=== PATIENT | male | born 1935 | race Hispanic/Latino ===

== ENCOUNTER 2019-12-17 14:58 | Inpatient (IN) | payer OTHER, MEDICARE ==
[~2019-12-17] VITALS: Ht 175.3 cm; Wt 84.5 kg
[~2019-12-17 14:58] MED LIST: ASPI-1197 PO; ATOR40TA71 PO; CARV12.511 PO; CLOP75TA32 PO; FAMO20TA8 PO; FURO20TA4 PO; ISOS60TA4 PO; LEVO25TA54 PO; MULT-1258 PO; SACU1TAB PO; SPIR25TA6 PO; TYL3 PO
[2019-12-17 15:33] LABS: BASOPHILS % (AUTO) 0.5 % (0.0-5.0); EOSINOPHILS % (AUTO) 1.3 % (0.0-8.0); LYMPHOCYTES % (AUTO) 6.9 % (21.0-51.0); MEAN CORPUSCULAR HEMOGLOBIN 31.8 pg (27.0-33.0); MEAN CORPUSCULAR HGB CONC 34.4 g/dL (32.0-36.0); MEAN CORPUSCULAR VOLUME 92.4 fL (79-99); MONOCYTES % (AUTO) 7.6 % (3.0-13.0); NEUTROPHILS % (AUTO) 82.8 % (40.0-77.0); PLATELET COUNT (AUTO) 371 K/uL (130-400); RED BLOOD CELL COUNT(AUTO) 2.11 MIL/uL (4.50-6.20); RED CELL DISTRIBUTION WIDTH 13.4 % (11.0-15.5); WHITE BLOOD COUNT (AUTO) 15.7 K/uL (4.8-10.8)
[2019-12-17 15:39] LABS: HEMATOCRIT 19.5 % (42-54)
[2019-12-17 15:45] LABS: CREATININE 2.7 mg/dL (0.5-1.5); POTASSIUM 5.2 mmol/L (3.5-5.1)
[2019-12-17 15:47] LABS: PARTIAL THROMBOPLASTIN TIME 30.6 SEC (26.3-35.5)
[2019-12-17 15:50] LABS: ALBUMIN 2.5 g/dL (3.5-5.0); BILIRUBIN,TOTAL 0.2 mg/dL (0.2-1.0); TOTAL PROTEIN, SERUM 6.3 g/dL (6.0-8.3)
[2019-12-17] MEDS ORDERED: PANTOPRAZOLE 40 MG/VIAL ONE ×2 (15:58→22:12)
[2019-12-17] MEDS ORDERED: FAMOTIDINE/PF 20 MG/2 ML VIAL IV ONE (15:58)
[2019-12-17 16:05] LABS: INR 1.01 (0.85-1.15); PROTHROMBIN TIME 10.9 SEC (9.6-11.6)
[2019-12-17] MEDS ORDERED: SODIUM CHLORIDE 0.9% 1000ML 1,000 ML IV ONE (16:22)
[2019-12-17 17:22] LABS: APPEARANCE,URINE Clear (CLEAR); BILIRUBIN,URINE Negative (NEGATIVE); COLOR,URINE Yellow (YELLOW); GLUCOSE, URINE (UA) Negative (NEGATIVE); KETONES,URINE Negative (NEGATIVE); LEUKOCYTE ESTERASE ,URINE Negative (NEGATIVE); NITRATE,URINE Negative (NEGATIVE); OCCULT BLOOD,URINE Negative (NEGATIVE); PROTEIN,URINE Negative (NEGATIVE); UROBILINOGEN,URINE 0.2 mg/dL (0.2-1.0)
[2019-12-17] MEDS ORDERED: SODIUM CHLORIDE 0.9% 500ML 500 ML IV ONE (17:52)
[2019-12-17] MEDS ORDERED: ACETAMINOPHEN 325 MG TAB PO PRN ×2 (19:15)
[2019-12-17] MEDS ORDERED: LACTULOSE 20 GM/30 ML UDCUP PO PRN (19:15)
[2019-12-17] MEDS: SODIUM CHLORIDE 0.9% 1000ML 1,000 ML IV SCH (19:15)
[2019-12-17] MEDS ORDERED: ONDANSETRON HCL 4 MG/2 ML VIAL IV PRN (19:15)
[2019-12-17] MEDS ORDERED: HYDRALAZINE HCL 20 MG/ML VIAL IV PRN (19:15)
[2019-12-17 20:53] LABS: HEMATOCRIT 21.1 % (42-54)
[2019-12-17] MEDS: PANTOPRAZOLE SODIUM 40 MG TABLET.DR PO SCH (21:00)
[2019-12-17] MEDS ORDERED: DEXTROSE 50%-WATER 25 GM/50 ML VIAL IV SCH (22:15)
[2019-12-17] MEDS ORDERED: INSULIN HUMULIN R 100 UNIT/ML 3ML SQ SCH (22:15)
[2019-12-17] MEDS ORDERED: CALCIUM GLUCONATE 1 GM/10 ML VIAL IV SCH (22:15)
[2019-12-18] VITALS (19 sets, daily range): BP systolic 105–135; BP diastolic 54–67
[2019-12-18 01:27] LABS: HEMATOCRIT 25.8 % (42-54)
[2019-12-18] MEDS ORDERED: CALCIUM GLUCONATE 1 GM/10 ML VIAL IV ONE (01:37)
[2019-12-18] MEDS ORDERED: DEXTROSE 50%-WATER 50 ML DISP.SYRIN IV ONE (01:38)
[2019-12-18] MEDS ORDERED: INSULIN HUMULIN R 100 UNIT/ML 3ML ONE (01:38)
[2019-12-18] MEDS ORDERED: SODIUM CHLORIDE 0.9% 50 ML IV ONE (01:39)
--- NOTE | 2019-12-18 02:10 | NUR ---
ADMIT PT ADMITTED TO ROOM 413, AAOX3. PLACED COMFORTABLY IN BED. ADMISSION CARE DONE. ADMISSION DATA BASE COMPLETED. PLACED PT NPO FOR EGD IN AM. ORIENTED TO ROOM AND UNIT. IN FOR MORE CARE AND MANAGEMENT. Addendum: 12/18/19 at 0313 by CAMILLA AGUILAR RN RN Amended: Links added.
[2019-12-18] MEDS: SODIUM CHLORIDE 0.9% 1000ML 1,000 ML IV SCH ×5 (02:25→21:07)
--- NOTE | 2019-12-18 05:40 | NUR ---
ROUNDS PT RESTING WELL, NO COMPLAINTS VERBALIZED. KEPT NPO. PCP IN TO GIVE PT A BED BATH. FOR MORE CARE.
[2019-12-18 06:06] LABS: BASOPHILS % (AUTO) 0.5 % (0.0-5.0); HEMATOCRIT 27.4 % (42-54); LYMPHOCYTES % (AUTO) 9.3 % (21.0-51.0); MEAN CORPUSCULAR HEMOGLOBIN 30.3 pg (27.0-33.0); MEAN CORPUSCULAR HGB CONC 33.9 g/dL (32.0-36.0); MEAN CORPUSCULAR VOLUME 89.3 fL (79-99); MONOCYTES % (AUTO) 8.7 % (3.0-13.0); NEUTROPHILS % (AUTO) 78.7 % (40.0-77.0); PLATELET COUNT (AUTO) 313 K/uL (130-400); RED BLOOD CELL COUNT(AUTO) 3.07 MIL/uL (4.50-6.20); WHITE BLOOD COUNT (AUTO) 12.8 K/uL (4.8-10.8)
[2019-12-18 06:32] LABS: CREATININE 2.1 mg/dL (0.5-1.5)
--- NOTE | 2019-12-18 08:00 | NUR ---
TO GI LAB VIA BED ACCOMPANIED BY [facility] RIVET MAKER.
[2019-12-18] MEDS: PANTOPRAZOLE SODIUM 40 MG TABLET.DR PO SCH ×3 (08:37→20:27)
[2019-12-18] MEDS ORDERED: PROPOFOL 10 MG/ML 20ML VIAL IV ONE (08:59)
[2019-12-18] MEDS ORDERED: PHENYLEPHRINE HCL 10 MG/ML 1ML VIAL IV ONE (09:12)
[2019-12-18] MEDS ORDERED: SODIUM CHLORIDE 0.9% 10 ML VIAL ONE (09:12)
--- NOTE | 2019-12-18 10:30 | NUR ---
PT. RETURNED TO ROOM VIA BED ACCOMPANIED BY Ariana HAYWARD RN. EYES CLOSED, RESP.'S EVEN AND UNLABORED. OPENS EYES TO VERBAL COMMAND. ALERT AND ORIENTED X3. DENIES ANY CURRENT SOB, DENIES ANY CURRENT PAIN. CALL LIGHT WITHIN REACH, VERBALIZED ABILITY TO USE. BED LOW, SIDE RAILS UP X3. ROOM DOOR OPEN.
--- NOTE | 2019-12-18 11:35 | NUR ---
DYSPHAGIA CHARU COMPLETED. -S/S OF ASPIRATION AT THIS TIME WITH ALL TEXTURES. Pt CURRENTLY ON LIQUID DIET SECONDARY TO GI ISSUES. Pt SAFE TO ADVANCE TO REGULAR SOLIDS WHEN DOCTOR RECOMMENDS IT. LIFE SKILLS COACH COORDINATED WITH NURSE LAWLER. PATIENT EDUCATED ON RISKS AND CONSEQUENCES OF ASPIRATION AND VOICED UNDERSTANDING. Addendum: 12/18/[address] RODRIGUEZ Amended: Links added.
--- NOTE | 2019-12-18 16:52 | NUR ---
INITIAL: Met w pt this afternoon to discuss dcp. Pt mentions that prior to admission he was in the process of moving from his sons home in [place] to his own apartment @ [facility] in [place]. Pt states that he still needs to move his furniture and belongs. PT states that he is independent w ambulation and ADLs. He had provider services 4hr/day but is not sure if the provider will continue to visit him once he moves. Pt states that he has a rollator avail if needed. Pt feels safe and comfortable to return home at ne. He mentions that if needed he might return to his son's home. CM to continue to follow and wait for MD recommendations. Addendum: 12/19/19 at 1656 by JESUS ALBERTO BONILLA Amended: Links added.
--- NOTE | 2019-12-18 20:30 | NUR ---
MEDS AWAKENED PT FOR DUE MEDS. SHIFT ASSESSMENT DONE, PLEASE REFER TO CHART. DUE MEDS ADMINISTERED, TOLERATED WELL. CALL LIGHT WITHIN REACH. WILL MONITOR PT. Addendum: 12/18/19 at 2232 by CAMILLA AGUILAR RN RN Amended: Links added.
[2019-12-19] MEDS: SODIUM CHLORIDE 0.9% 1000ML 1,000 ML IV SCH ×5 (00:16→21:15)
--- NOTE | 2019-12-19 01:42 | NUR ---
ROUNDS PT RESTING WELL, NO DISTRESS NOTED. KEPT COMFORTABLE IN BED WITH HOB ELEVATED. CALL LIGHT WITHIN REACH. WILL CONTINUE TO MONITOR.
[2019-12-19 03:53] VITALS: BP 118/59
[2019-12-19 05:14] LABS: HEMATOCRIT 27.2 % (42-54); MEAN CORPUSCULAR HEMOGLOBIN 30.8 pg (27.0-33.0); MEAN CORPUSCULAR HGB CONC 33.8 g/dL (32.0-36.0); RED BLOOD CELL COUNT(AUTO) 2.99 MIL/uL (4.50-6.20); RED CELL DISTRIBUTION WIDTH 14.3 % (11.0-15.5); WHITE BLOOD COUNT (AUTO) 9.9 K/uL (4.8-10.8)
[2019-12-19 05:31] LABS: % IRON SATURATION 10.7 % (30-44)
[2019-12-19 05:35] LABS: CREATININE 1.8 mg/dL (0.5-1.5); POTASSIUM 5.7 mmol/L (3.5-5.1)
--- NOTE | 2019-12-19 06:05 | NUR ---
ROUNDS PT RESTING WELL, STILL ASLEEP. NEW IV BAG HUNG. KEPT COMFORTABLE. FOR MORE CARE.
[2019-12-19 07:00] VITALS: BP 123/62
[2019-12-19] MEDS: PANTOPRAZOLE SODIUM 40 MG TABLET.DR PO SCH ×2 (08:35→20:46)
[2019-12-19 11:00] VITALS: BP 121/62
[2019-12-19] MEDS ORDERED: COMPOUND IV MISC 1 EACH IVSOLN MISC PRN (12:15)
[2019-12-19] MEDS: IRON SUCROSE COMPLEX 100 MG in SODIUM CHLORIDE 0.9% 50 ML IV SCH (13:16)
[2019-12-19 15:00] VITALS: BP 145/69
--- NOTE | 2019-12-19 15:15 | NUR ---
PT.'S SON AT BEDSIDE; UPDATED ON EGD FINDINGS AND PLAN OF CARE WITH PT.'S CONSENT.
[2019-12-19 20:00] VITALS: BP 137/63
[2019-12-19] MEDS ORDERED: SODIUM POLYSTYRENE SULFONATE 15 GM/60 ML ML ONE (22:41)
[2019-12-19] MEDS: SODIUM POLYSTYRENE SULFONATE 15 GM/60 ML ML PO SCH (22:58)
[2019-12-19 23:53] VITALS: BP 146/79
[2019-12-20] MEDS: SODIUM CHLORIDE 0.9% 1000ML 1,000 ML IV SCH ×2 (01:35→16:50)
[2019-12-20 03:51] VITALS: BP 130/69
[2019-12-20 05:12] LABS: BASOPHILS % (AUTO) 0.9 % (0.0-5.0); EOSINOPHILS % (AUTO) 4.5 % (0.0-8.0); HEMATOCRIT 29.3 % (42-54); LYMPHOCYTES % (AUTO) 15.7 % (21.0-51.0); MEAN CORPUSCULAR HEMOGLOBIN 30.9 pg (27.0-33.0); MEAN CORPUSCULAR HGB CONC 33.4 g/dL (32.0-36.0); MEAN CORPUSCULAR VOLUME 92.4 fL (79-99); MONOCYTES % (AUTO) 10.8 % (3.0-13.0); NEUTROPHILS % (AUTO) 67.6 % (40.0-77.0); PLATELET COUNT (AUTO) 338 K/uL (130-400); RED BLOOD CELL COUNT(AUTO) 3.17 MIL/uL (4.50-6.20); RED CELL DISTRIBUTION WIDTH 14.5 % (11.0-15.5); WHITE BLOOD COUNT (AUTO) 8.8 K/uL (4.8-10.8)
[2019-12-20 05:28] LABS: CREATININE 1.5 mg/dL (0.5-1.5)
[2019-12-20] MEDS: PANTOPRAZOLE SODIUM 40 MG TABLET.DR PO SCH ×2 (08:21→20:06)
[2019-12-20] MEDS: IRON SUCROSE COMPLEX 100 MG in SODIUM CHLORIDE 0.9% 50 ML IV SCH (08:22)
[2019-12-20 08:29] VITALS: BP 135/67
[2019-12-20 12:43] VITALS: BP 134/66
[2019-12-20] MEDS ORDERED: PANT40TA PO (14:19)
[2019-12-20 16:00] VITALS: BP 153/77
--- NOTE | 2019-12-20 16:02 | NUR ---
RD NOTE Pt admitted due to symptomatic anemia, hypotension, and ARF. Pt's BMI is of 27.1 which is adequate for age. Pt is currently on a renal Non HD diet and consuming 50-100% of meals. Pt has discharge order in place as of 12/20/19. RD RECOMMENDATION: Continue current diet order. Monitor PO intake, if pt's intake <50% consider Ensure BID. Continue iron supplementation. Monitor Hbg/HCT, Iron labs and renal labs RD will continue to follow pt's status. LABS: HGB 9.8. HCT 29.3, NA 132, K 5.3, CREAT 1.5, GFR 48, TOT CA 7.9, IRON 25, TIBC 233, % SAT 10.7, ALB 2.5 LBM: 12/19/19 no tarry stools were noted for 12/20/19 as per EMR Addendum: 12/20/19 at [address] Amended: Links added.
--- NOTE | 2019-12-20 18:00 | NUR ---
POTASSIUM TASIA HIDES INSPECTOR RETURNED PAGE AND MADE AWARE OF POTASSIUM LEVEL, STATED TO NOTIFY NEPHROLOGY
--- NOTE | 2019-12-20 18:15 | NUR ---
NEPHROLOGY CALL PLACED TO NEPHROLOGY AND MADE AWARE OF POTASSIUM 5.3; PER [facility], STATES TO HOLD DC AND OBTAIN BMP IN AM.
[2019-12-20 19:00] VITALS: BP 144/65
--- NOTE | 2019-12-20 19:00 | NUR ---
DISCHARGE HELD As per report from day nurse,discharge held due to elevated K+.
[2019-12-20] MEDS ORDERED: SODIUM POLYSTYRENE SULFONATE 15 GM/60 ML ML PO SCH (20:00)
[2019-12-20] MEDS: SODIUM POLYSTYRENE SULFONATE 15 GM/60 ML ML PO SCH (20:06)
--- NOTE | 2019-12-20 20:06 | NUR ---
KAYEXALATE Kayexalate given,tess well.
[2019-12-21] VITALS: BP 136/70
[2019-12-21] MEDS: SODIUM CHLORIDE 0.9% 1000ML 1,000 ML IV SCH (02:46)
[2019-12-21 04:00] VITALS: BP 135/74
[2019-12-21 04:01] LABS: BASOPHILS % (AUTO) 0.6 % (0.0-5.0); EOSINOPHILS % (AUTO) 3.4 % (0.0-8.0); HEMATOCRIT 28.3 % (42-54); LYMPHOCYTES % (AUTO) 9.2 % (21.0-51.0); MEAN CORPUSCULAR HEMOGLOBIN 30.9 pg (27.0-33.0); MEAN CORPUSCULAR HGB CONC 33.6 g/dL (32.0-36.0); MEAN CORPUSCULAR VOLUME 92.2 fL (79-99); MONOCYTES % (AUTO) 9.9 % (3.0-13.0); NEUTROPHILS % (AUTO) 76.4 % (40.0-77.0); PLATELET COUNT (AUTO) 319 K/uL (130-400); RED BLOOD CELL COUNT(AUTO) 3.07 MIL/uL (4.50-6.20); RED CELL DISTRIBUTION WIDTH 14.3 % (11.0-15.5); WHITE BLOOD COUNT (AUTO) 8.6 K/uL (4.8-10.8)
[2019-12-21 04:15] LABS: CREATININE 1.7 mg/dL (0.5-1.5); POTASSIUM 3.9 mmol/L (3.5-5.1)
[2019-12-21] MEDS ORDERED: LEVOTHYROXINE 25 MCG TABLET PO SCH (06:00)
[2019-12-21 08:00] VITALS: BP 150/74
[2019-12-21] MEDS: PANTOPRAZOLE SODIUM 40 MG TABLET.DR PO SCH (08:47)
[2019-12-21] MEDS ORDERED: CLOPIDOGREL BISULFATE 75 MG TAB PO SCH (09:00)
[2019-12-21] MEDS ORDERED: FUROSEMIDE 20 MG TABLET PO SCH (09:00)
[2019-12-21] MEDS: IRON SUCROSE COMPLEX 100 MG in SODIUM CHLORIDE 0.9% 50 ML IV SCH (09:25)
--- NOTE | 2019-12-21 11:00 | NUR ---
Patient assessed only complaint was pain of abdomen from Kayexalate explained to him this is a common side effect of the medication nothing to worry about. Discharge order received from Bridget Staples APRN. Patient given D/C instructions all questions answered plan of care reviewed including medications and follow up appointments.
== END 2019-12-21 13:00 | disposition home or self-care (01) | DRG 378 ==
LOC: EDH 14:58 → EDHIP 19:07 → 4CH 12-18 01:39
PROVIDERS: ADMIT Family Medicine; ATTEND Family Medicine
PROC: 30233N1 Transfusion of Nonautologous Red Blood Cells into Peripheral Vein, Percutaneous Approach (ICD-10-PCS; 2019-12-17)
PROC: 0DB58ZX Excision of Esophagus, Via Natural or Artificial Opening Endoscopic, Diagnostic (ICD-10-PCS; principal; 2019-12-18)
PROC: 0DB68ZX Excision of Stomach, Via Natural or Artificial Opening Endoscopic, Diagnostic (ICD-10-PCS; 2019-12-18)
DX: K26.4 Chronic or unspecified duodenal ulcer with hemorrhage (principal); N17.9 Acute kidney failure, unspecified; E44.0 Moderate protein-calorie malnutrition; E87.1 Hypo-osmolality and hyponatremia; D62 Acute posthemorrhagic anemia; I13.0 Hypertensive heart and chronic kidney disease with heart failure and stage 1 through stage 4 chronic kidney disease, or unspecified chronic kidney disease; I50.32 Chronic diastolic (congestive) heart failure; I95.9 Hypotension, unspecified; K29.51 Unspecified chronic gastritis with bleeding; E87.5 Hyperkalemia; N18.9 Chronic kidney disease, unspecified; Z20.828 Contact with and (suspected) exposure to other viral communicable diseases; E11.22 Type 2 diabetes mellitus with diabetic chronic kidney disease; E86.9 Volume depletion, unspecified; I25.10 Atherosclerotic heart disease of native coronary artery without angina pectoris; R53.81 Other malaise; E87.8 Other disorders of electrolyte and fluid balance, not elsewhere classified; D50.9 Iron deficiency anemia, unspecified; I50.9 Heart failure, unspecified; K59.00 Constipation, unspecified; K80.20 Calculus of gallbladder without cholecystitis without obstruction; N20.0 Calculus of kidney; N32.89 Other specified disorders of bladder; Z68.27 Body mass index [BMI] 27.0-27.9, adult; Z95.0 Presence of cardiac pacemaker; Z95.5 Presence of coronary angioplasty implant and graft; Z83.3 Family history of diabetes mellitus; Z82.49 Family history of ischemic heart disease and other diseases of the circulatory system
CPT/HCPCS: 36415; 43239; 71045; 74176; 76770; 80048; 80053; 81003; 82550; 83540; 83550; 83880; 84132; 84484; 85014; 85018; 85025; 85027; 85610; 85730; 86850; 86900; 86901; 86923; 87426; 92610; 93005; 93306; 93356; A4606; C9113; G0378; J0610; J1756; J1815; J2370; J2704; J3490; J7030; J7040; J7070; P9016; U0003

== ENCOUNTER 2020-03-28 06:10 | Day surgery (SDC) | payer OTHER, MEDICARE ==
[~2020-03-28] VITALS: Ht 172.7 cm; Wt 84.8 kg
[~2020-03-28 06:10] MED LIST changes: -ASPI-1197 PO; -FAMO20TA8 PO; -ISOS60TA4 PO; +ISOS60TA77 PO; +PANT40TA PO; -SACU1TAB PO; -SPIR25TA6 PO
[2020-03-28] MEDS ORDERED: SODIUM CHLORIDE 0.9% 1000ML 1,000 ML IV ONE (06:14)
[2020-03-28 07:15] VITALS: BP 136/64
[2020-03-28] MEDS ORDERED: SACU1TAB PO (07:52)
[2020-03-28] MEDS ORDERED: PROPOFOL 10 MG/ML 20ML VIAL IV ONE (08:16)
[2020-03-28 08:40] VITALS: BP 118/66
[2020-03-28 08:45] VITALS: BP 110/56
[2020-03-28 08:50] VITALS: BP 124/63
[2020-03-28 08:55] VITALS: BP 140/69
[2020-03-28 09:00] VITALS: BP 124/60
== END 2020-03-28 09:15 | disposition home or self-care (01) ==
LOC: ENDO 06:10 → DAH 06:10 → ENDO 09:15
PROVIDERS: ATTEND Internal Medicine Gastroenterology
DX: K92.1 Melena (principal); Z20.822 Contact with and (suspected) exposure to COVID-19; K26.9 Duodenal ulcer, unspecified as acute or chronic, without hemorrhage or perforation; K29.70 Gastritis, unspecified, without bleeding; I44.7 Left bundle-branch block, unspecified; I10 Essential (primary) hypertension; K21.9 Gastro-esophageal reflux disease without esophagitis; I25.10 Atherosclerotic heart disease of native coronary artery without angina pectoris; E78.49 Other hyperlipidemia; Z95.5 Presence of coronary angioplasty implant and graft; Z95.0 Presence of cardiac pacemaker; Z88.8 Allergy status to other drugs, medicaments and biological substances; Z79.01 Long term (current) use of anticoagulants; Z79.899 Other long term (current) drug therapy; Z79.890 Hormone replacement therapy; Z80.0 Family history of malignant neoplasm of digestive organs; Z86.19 Personal history of other infectious and parasitic diseases
CPT/HCPCS: 43239; 88305; 88342; 93005; A4215 ×2; A4222; A4223; A4606; A4620; A4657; A4663; C9803; J2704; J7030; U0003

== ENCOUNTER 2020-06-20 07:00 | Day surgery (SDC) | payer OTHER, MEDICARE ==
[~2020-06-20] VITALS: Ht 172.7 cm; Wt 83.5 kg
[~2020-06-20 07:00] MED LIST changes: +ATOR40TA69 PO; -ATOR40TA71 PO; +FERR-72 PO; -LEVO25TA54 PO; -MULT-1258 PO; -PANT40TA PO; +PANT40TA54 PO; +SACU1TAB PO; +SODIUM CHLORIDE 0.9% 1000ML 1,000 ML IV ONE; -TYL3 PO
[2020-06-20 07:45] VITALS: BP 145/72
[2020-06-20] MEDS ORDERED: PROPOFOL 10 MG/ML 20ML VIAL IV ONE (09:46)
[2020-06-20 09:55] VITALS: BP 103/52
[2020-06-20 10:00] VITALS: BP 110/51
[2020-06-20 10:05] VITALS: BP 106/57
[2020-06-20 10:10] VITALS: BP 115/60
[2020-06-20 10:15] VITALS: BP 122/66
== END 2020-06-20 10:30 | disposition home or self-care (01) ==
LOC: DAH 07:00 → ENDO 07:00
PROVIDERS: ATTEND Internal Medicine
DX: K31.89 Other diseases of stomach and duodenum (principal); D50.9 Iron deficiency anemia, unspecified; Z20.822 Contact with and (suspected) exposure to COVID-19; I10 Essential (primary) hypertension; I25.10 Atherosclerotic heart disease of native coronary artery without angina pectoris; E78.49 Other hyperlipidemia; K55.9 Vascular disorder of intestine, unspecified; Z95.5 Presence of coronary angioplasty implant and graft; Z88.8 Allergy status to other drugs, medicaments and biological substances; Z79.899 Other long term (current) drug therapy
CPT/HCPCS: 43239; A4215; A4221; A4222; A4223; A4606; A4620; A4663; C9803; J2704; J7030; U0003

== ENCOUNTER 2020-12-12 07:34 | Day surgery (SDC) | payer OTHER, MEDICARE ==
[~2020-12-12] VITALS: Ht 175.3 cm; Wt 83.5 kg
[~2020-12-12 07:34] MED LIST changes: +0.9%NACL 1000ML 1,000 ML IV ONE; +DOCU-116 PO; +HYDR30CR79 RC; -SODIUM CHLORIDE 0.9% 1000ML 1,000 ML IV ONE; +SUCR1ORA15 PO
[2020-12-12 07:52] VITALS: BP 152/72
[2020-12-12] MEDS ORDERED: PROPOFOL 10 MG/ML 20ML VIAL IV ONE ×2 (08:43)
[2020-12-12 08:56] VITALS: BP 95/48
[2020-12-12 09:01] VITALS: BP 103/59
[2020-12-12 09:06] VITALS: BP 109/57
[2020-12-12 09:11] VITALS: BP 121/74
== END 2020-12-12 09:30 | disposition home or self-care (01) ==
LOC: ENDO 07:34 → DAH 07:34 → ENDO 09:30
PROVIDERS: ATTEND Internal Medicine Gastroenterology
DX: D50.0 Iron deficiency anemia secondary to blood loss (chronic) (principal); K29.70 Gastritis, unspecified, without bleeding; K22.2 Esophageal obstruction; K22.89 Other specified disease of esophagus; K25.9 Gastric ulcer, unspecified as acute or chronic, without hemorrhage or perforation; K26.9 Duodenal ulcer, unspecified as acute or chronic, without hemorrhage or perforation; K59.04 Chronic idiopathic constipation; K64.1 Second degree hemorrhoids; K55.9 Vascular disorder of intestine, unspecified; I25.10 Atherosclerotic heart disease of native coronary artery without angina pectoris; I10 Essential (primary) hypertension; I44.7 Left bundle-branch block, unspecified; E78.5 Hyperlipidemia, unspecified; Z95.0 Presence of cardiac pacemaker; Z95.1 Presence of aortocoronary bypass graft; Z79.899 Other long term (current) drug therapy; Z20.822 Contact with and (suspected) exposure to COVID-19
CPT/HCPCS: 43239; 87635; 88305; 88342; 93005; A4215 ×2; A4221; A4222; A4223; A4606; A4620; A4657; A4663; C9803; J2704 ×2; J7030

== ENCOUNTER 2021-02-07 12:32 | Inpatient (IN) | payer OTHER, MEDICARE ==
[~2021-02-07] VITALS: Ht 175.3 cm; Wt 88.2 kg
[~2021-02-07 12:32] MED LIST changes: -0.9%NACL 1000ML 1,000 ML IV ONE
[2021-02-07 13:24] LABS: BASOPHILS % (AUTO) 0.3 % (0.0-5.0); EOSINOPHILS % (AUTO) 0.2 % (0.0-8.0); HEMATOCRIT 22.7 % (42-54); LYMPHOCYTES % (AUTO) 6.4 % (21.0-51.0); MEAN CORPUSCULAR HEMOGLOBIN 26.9 pg (27.0-33.0); MEAN CORPUSCULAR HGB CONC 31.3 g/dL (32.0-36.0); MONOCYTES % (AUTO) 6.7 % (3.0-13.0); NEUTROPHILS % (AUTO) 85.1 % (40.0-77.0); PLATELET COUNT (AUTO) 262 K/uL (130-400); RED BLOOD CELL COUNT(AUTO) 2.64 MIL/uL (4.50-6.20); RED CELL DISTRIBUTION WIDTH 17.7 % (11.0-15.5); WHITE BLOOD COUNT (AUTO) 18.4 K/uL (4.8-10.8)
[2021-02-07 13:25] LABS: APPEARANCE,URINE Clear (CLEAR); BILIRUBIN,URINE Negative (NEGATIVE); COLOR,URINE Dark Yellow (YELLOW); GLUCOSE, URINE (UA) Negative (NEGATIVE); KETONES,URINE Trace mg/dL (NEGATIVE); LEUKOCYTE ESTERASE ,URINE Small (NEGATIVE); NITRATE,URINE Negative (NEGATIVE); OCCULT BLOOD,URINE Negative (NEGATIVE); PH,URINE 5.5 (5.0-8.0); PROTEIN,URINE POS 1+ mg/dL (NEGATIVE)
[2021-02-07 13:31] LABS: CREATININE 2.2 mg/dL (0.5-1.5); POTASSIUM 3.5 mmol/L (3.5-5.1)
[2021-02-07 13:36] LABS: ALBUMIN 2.3 g/dL (3.5-5.0); BILIRUBIN,TOTAL 0.4 mg/dL (0.2-1.0); TOTAL PROTEIN, SERUM 6.5 g/dL (6.0-8.3)
[2021-02-07 13:39] LABS: BACTERIA,URINE Rare /HPF (None Seen); HYALINE CASTS, URINE 0-1 /LPF (0-1 /LPF); RBC,URINE 0-1 /HPF (0-1); SQUAMOUS EPITHELIAL CELL,UR Rare /HPF (0-2)
[2021-02-07] MEDS: 0.9%NACL 1000ML 1,000 ML IV SCH (14:30)
[2021-02-07] MEDS ORDERED: VANCOMYCIN 1G VIAL IVPB ONE (15:11)
[2021-02-07] MEDS: ZOSYN 3.375GM +NS 50ML IV SCH (16:00)
[2021-02-07] MEDS ORDERED: VANCOMYCIN 1G/250ML KIT 250 ML IV ONE (17:18)
[2021-02-08 00:13] VITALS: BP 133/61
[2021-02-08] MEDS: 0.9%NACL 1000ML 1,000 ML IV SCH (00:30)
[2021-02-08] MEDS ORDERED: CARV12.511 PO (00:31)
[2021-02-08] MEDS ORDERED: LEVO50CA4 PO (00:31)
[2021-02-08] MEDS ORDERED: PANT40TA54 PO (00:31)
[2021-02-08] MEDS ORDERED: FERR324T4 PO (00:31)
[2021-02-08] MEDS ORDERED: ISOS60TA77 PO (00:31)
[2021-02-08] MEDS ORDERED: FURO20TA4 PO (00:31)
[2021-02-08] MEDS ORDERED: ATOR40TA71 PO (00:31)
[2021-02-08] MEDS ORDERED: SACU1TAB PO (00:31)
[2021-02-08] MEDS ORDERED: CLOP75TA32 PO (00:31)
[2021-02-08 01:16] LABS: BASOPHILS % (AUTO) 0.5 % (0.0-5.0); EOSINOPHILS % (AUTO) 1.9 % (0.0-8.0); HEMATOCRIT 26.2 % (42-54); LYMPHOCYTES % (AUTO) 8.8 % (21.0-51.0); MEAN CORPUSCULAR HEMOGLOBIN 27.9 pg (27.0-33.0); MEAN CORPUSCULAR HGB CONC 32.1 g/dL (32.0-36.0); MONOCYTES % (AUTO) 10.8 % (3.0-13.0); NEUTROPHILS % (AUTO) 77.4 % (40.0-77.0); PLATELET COUNT (AUTO) 245 K/uL (130-400); RED BLOOD CELL COUNT(AUTO) 3.01 MIL/uL (4.50-6.20); WHITE BLOOD COUNT (AUTO) 12.8 K/uL (4.8-10.8)
[2021-02-08 01:29] LABS: BILIRUBIN,TOTAL 0.8 mg/dL (0.2-1.0); POTASSIUM 3.4 mmol/L (3.5-5.1); TOTAL PROTEIN, SERUM 6.1 g/dL (6.0-8.3)
[2021-02-08 04:00] VITALS: BP 114/52
[2021-02-08] MEDS: ZOSYN 3.375GM +NS 50ML IV SCH ×2 (04:50→15:33)
[2021-02-08 09:34] VITALS: BP 158/73
[2021-02-08 11:47] VITALS: BP 166/78
[2021-02-08] MEDS ORDERED: IPRATROPIUM/ALBUTEROL SULFATE 3 ML SOLUTION IH PRN (13:30)
[2021-02-08] MEDS: ENOXAPARIN SODIUM 40 MG/0.4 ML SYRINGE SQ SCH (15:33)
[2021-02-08 16:52] VITALS: BP 178/87
[2021-02-08] MEDS ORDERED: SODIUM CHLORIDE 3% FOR INHALATION 4 ML/AMP VIAL.NEB IH PRN (17:00)
[2021-02-08] MEDS ORDERED: FERROUS SULFATE 325 MG TABLET.DR ONE (19:48)
[2021-02-08 20:00] VITALS: BP 150/76
[2021-02-08] MEDS: ATORVASTATIN 40 MG TABLET PO SCH (20:09)
[2021-02-08] MEDS: CARVEDILOL 12.5 MG TABLET PO SCH (20:10)
[2021-02-08] MEDS: PANTOPRAZOLE 40 MG TAB DR PO SCH (20:10)
[2021-02-08] MEDS: FUROSEMIDE 20 MG TABLET PO SCH (20:10)
[2021-02-08] MEDS: SACUBITRIL/VALSARTAN 1 EACH TABLET PO SCH (20:10)
[2021-02-08] MEDS: FERROUS SULFATE 325 MG TABLET.DR PO SCH (20:10)
[2021-02-08] MEDS: ISOSORBIDE MONO 30MG SR TAB PO SCH (20:10)
[2021-02-08] MEDS: KCL 20 MEQ ERTAB PO PRN ×2 (20:17→23:44)
[2021-02-09] VITALS: BP 133/68
[2021-02-09] MEDS: ZOSYN 3.375GM +NS 50ML IV SCH ×2 (03:39→16:51)
[2021-02-09 04:00] VITALS: BP 144/67
[2021-02-09 04:42] LABS: HEMATOCRIT 25.8 % (42-54); MEAN CORPUSCULAR HEMOGLOBIN 27.3 pg (27.0-33.0); MEAN CORPUSCULAR HGB CONC 31.4 g/dL (32.0-36.0); MEAN CORPUSCULAR VOLUME 86.9 fL (79-99); RED BLOOD CELL COUNT(AUTO) 2.97 MIL/uL (4.50-6.20); RED CELL DISTRIBUTION WIDTH 17.1 % (11.0-15.5); WHITE BLOOD COUNT (AUTO) 11.1 K/uL (4.8-10.8)
[2021-02-09 04:51] LABS: CREATININE 1.5 mg/dL (0.5-1.5); MAGNESIUM 1.5 mg/dL (1.80-2.40); PHOSPHORUS 3.1 mg/dL (2.5-4.9); POTASSIUM 3.6 mmol/L (3.5-5.1)
[2021-02-09] MEDS ORDERED: LEVOTHYROXINE 50 MCG TABLET ONE (05:09)
[2021-02-09] MEDS: KCL 20 MEQ ERTAB PO PRN (05:11)
[2021-02-09] MEDS: LEVOTHYROXINE 50 MCG TABLET PO SCH (06:03)
[2021-02-09] MEDS ORDERED: MAGNESIUM 2GM PREMIX 50ML 50 ML IV ONE (07:30)
[2021-02-09 08:00] VITALS: BP 112/73
[2021-02-09] MEDS: PANTOPRAZOLE 40 MG TAB DR PO SCH ×2 (09:46→22:09)
[2021-02-09] MEDS: CLOPIDOGREL 75MG TAB PO SCH (09:47)
[2021-02-09] MEDS: ISOSORBIDE MONO 30MG SR TAB PO SCH ×2 (09:49→22:09)
[2021-02-09] MEDS: SACUBITRIL/VALSARTAN 1 EACH TABLET PO SCH ×2 (09:50→22:08)
[2021-02-09] MEDS: FUROSEMIDE 20 MG TABLET PO SCH ×2 (09:50→22:09)
[2021-02-09] MEDS: FERROUS SULFATE 325 MG TABLET.DR PO SCH ×3 (09:50→22:09)
[2021-02-09] MEDS: CARVEDILOL 12.5 MG TABLET PO SCH ×2 (09:51→22:10)
[2021-02-09] MEDS: ENOXAPARIN SODIUM 40 MG/0.4 ML SYRINGE SQ SCH (09:52)
[2021-02-09 11:49] VITALS: BP 134/72
[2021-02-09] MEDS ORDERED: HYDROCORTISONE 2.5% CREAM 28G TP PRN (12:30)
[2021-02-09] MEDS ORDERED: MAGNESIUM 2GM PREMIX 50ML 50 ML IV SCH (13:00)
[2021-02-09 16:00] VITALS: BP 128/74
[2021-02-09] MEDS ORDERED: VANCOMYCIN 1.25GM/NS 250ML IVPB SCH ×2 (16:00)
[2021-02-09] MEDS ORDERED: COMPOUND IV REFRIGERATED 1 EACH IVSOLN MISC PRN (16:00)
[2021-02-09] MEDS ORDERED: VANCOMYCIN PROTOCOL PER PHARMACY IV SCH (16:00)
[2021-02-09] MEDS: IPRATROPIUM/ALBUTEROL SULFATE 3 ML SOLUTION IH SCH ×2 (18:25→22:28)
[2021-02-09 20:23] VITALS: BP 128/62
[2021-02-09] MEDS: DOCUSATE SODIUM 100 MG CAP PO SCH (22:09)
[2021-02-09] MEDS: ATORVASTATIN 40 MG TABLET PO SCH (22:09)
[2021-02-10] VITALS: BP 119/61
[2021-02-10] MEDS: IPRATROPIUM/ALBUTEROL SULFATE 3 ML SOLUTION IH SCH ×6 (02:10→21:44)
[2021-02-10 04:00] VITALS: BP 123/59
[2021-02-10 04:17] LABS: BASOPHILS % (AUTO) 0.6 % (0.0-5.0); EOSINOPHILS % (AUTO) 2.2 % (0.0-8.0); HEMATOCRIT 25.5 % (42-54); LYMPHOCYTES % (AUTO) 11.9 % (21.0-51.0); MEAN CORPUSCULAR HEMOGLOBIN 27.4 pg (27.0-33.0); MEAN CORPUSCULAR HGB CONC 31.4 g/dL (32.0-36.0); MEAN CORPUSCULAR VOLUME 87.3 fL (79-99); MONOCYTES % (AUTO) 10.4 % (3.0-13.0); NEUTROPHILS % (AUTO) 73.7 % (40.0-77.0); PLATELET COUNT (AUTO) 293 K/uL (130-400); RED BLOOD CELL COUNT(AUTO) 2.92 MIL/uL (4.50-6.20); RED CELL DISTRIBUTION WIDTH 17.2 % (11.0-15.5); WHITE BLOOD COUNT (AUTO) 10.9 K/uL (4.8-10.8)
[2021-02-10 04:25] LABS: CREATININE 1.5 mg/dL (0.5-1.5); POTASSIUM 3.4 mmol/L (3.5-5.1)
[2021-02-10] MEDS: ZOSYN 3.375GM +NS 50ML IV SCH ×2 (04:40→15:01)
[2021-02-10] MEDS: LEVOTHYROXINE 50 MCG TABLET PO SCH (06:30)
[2021-02-10] MEDS: KCL 20 MEQ ERTAB PO PRN ×2 (06:30→08:50)
[2021-02-10 07:40] VITALS: BP 135/72
[2021-02-10] MEDS: DOCUSATE SODIUM 100 MG CAP PO SCH ×2 (08:47→20:08)
[2021-02-10] MEDS: SACUBITRIL/VALSARTAN 1 EACH TABLET PO SCH ×2 (08:47→20:08)
[2021-02-10] MEDS: ISOSORBIDE MONO 30MG SR TAB PO SCH ×2 (08:48→20:11)
[2021-02-10] MEDS: PANTOPRAZOLE 40 MG TAB DR PO SCH ×2 (08:48→20:08)
[2021-02-10] MEDS: CARVEDILOL 12.5 MG TABLET PO SCH ×2 (08:48→20:08)
[2021-02-10] MEDS: FUROSEMIDE 20 MG TABLET PO SCH (08:49)
[2021-02-10] MEDS: CLOPIDOGREL 75MG TAB PO SCH (08:49)
[2021-02-10] MEDS: FERROUS SULFATE 325 MG TABLET.DR PO SCH ×3 (08:50→20:08)
[2021-02-10] MEDS: ENOXAPARIN SODIUM 40 MG/0.4 ML SYRINGE SQ SCH (08:52)
[2021-02-10 11:30] VITALS: BP 119/61
[2021-02-10] MEDS ORDERED: FUROSEMIDE 20MG VIAL IVP SCH (13:30)
[2021-02-10 14:04] LABS: CREATININE 1.6 mg/dL (0.5-1.5); MAGNESIUM 2.4 mg/dL (1.80-2.40); POTASSIUM 3.9 mmol/L (3.5-5.1)
[2021-02-10 15:30] VITALS: BP 129/66
[2021-02-10] MEDS: KCL 20 MEQ ERTAB PO SCH (16:41)
[2021-02-10 19:00] VITALS: BP 118/62
[2021-02-10] MEDS: ATORVASTATIN 40 MG TABLET PO SCH (20:07)
[2021-02-11] VITALS (7 sets, daily range): BP systolic 115–132; BP diastolic 49–74
[2021-02-11] MEDS: IPRATROPIUM/ALBUTEROL SULFATE 3 ML SOLUTION IH SCH ×6 (02:01→22:11)
[2021-02-11 04:30] LABS: BASOPHILS % (AUTO) 0.8 % (0.0-5.0); EOSINOPHILS % (AUTO) 3.1 % (0.0-8.0); HEMATOCRIT 25.9 % (42-54); LYMPHOCYTES % (AUTO) 14.4 % (21.0-51.0); MEAN CORPUSCULAR HEMOGLOBIN 27.2 pg (27.0-33.0); MEAN CORPUSCULAR HGB CONC 31.7 g/dL (32.0-36.0); MEAN CORPUSCULAR VOLUME 85.8 fL (79-99); MONOCYTES % (AUTO) 11.2 % (3.0-13.0); NEUTROPHILS % (AUTO) 69.4 % (40.0-77.0); PLATELET COUNT (AUTO) 297 K/uL (130-400); RED BLOOD CELL COUNT(AUTO) 3.02 MIL/uL (4.50-6.20); RED CELL DISTRIBUTION WIDTH 17.2 % (11.0-15.5); WHITE BLOOD COUNT (AUTO) 10.2 K/uL (4.8-10.8)
[2021-02-11 04:45] LABS: CREATININE 1.5 mg/dL (0.5-1.5); PHOSPHORUS 3.5 mg/dL (2.5-4.9); POTASSIUM 3.6 mmol/L (3.5-5.1)
[2021-02-11] MEDS: ZOSYN 3.375GM +NS 50ML IV SCH ×2 (05:14→15:38)
[2021-02-11] MEDS: LEVOTHYROXINE 50 MCG TABLET PO SCH (06:21)
[2021-02-11] MEDS: KCL 20 MEQ ERTAB PO SCH (08:46)
[2021-02-11] MEDS: SACUBITRIL/VALSARTAN 1 EACH TABLET PO SCH ×2 (08:47→20:35)
[2021-02-11] MEDS: FERROUS SULFATE 325 MG TABLET.DR PO SCH ×3 (08:47→20:36)
[2021-02-11] MEDS: DOCUSATE SODIUM 100 MG CAP PO SCH ×2 (08:47→20:36)
[2021-02-11] MEDS: CARVEDILOL 12.5 MG TABLET PO SCH ×2 (08:47→20:36)
[2021-02-11] MEDS: ISOSORBIDE MONO 30MG SR TAB PO SCH ×2 (08:47→20:36)
[2021-02-11] MEDS: PANTOPRAZOLE 40 MG TAB DR PO SCH ×2 (08:47→20:35)
[2021-02-11] MEDS: CLOPIDOGREL 75MG TAB PO SCH (08:47)
[2021-02-11] MEDS: ENOXAPARIN SODIUM 40 MG/0.4 ML SYRINGE SQ SCH (08:48)
[2021-02-11] MEDS: ATORVASTATIN 40 MG TABLET PO SCH (20:35)
[2021-02-12] MEDS: IPRATROPIUM/ALBUTEROL SULFATE 3 ML SOLUTION IH SCH ×5 (01:42→18:13)
[2021-02-12 04:19] VITALS: BP 108/67
[2021-02-12 04:33] LABS: EOSINOPHILS % (AUTO) 4.5 % (0.0-8.0); HEMATOCRIT 24.2 % (42-54); LYMPHOCYTES % (AUTO) 13.8 % (21.0-51.0); MEAN CORPUSCULAR HEMOGLOBIN 27.3 pg (27.0-33.0); MEAN CORPUSCULAR HGB CONC 32.2 g/dL (32.0-36.0); MEAN CORPUSCULAR VOLUME 84.6 fL (79-99); MONOCYTES % (AUTO) 12.1 % (3.0-13.0); NEUTROPHILS % (AUTO) 67.4 % (40.0-77.0); PLATELET COUNT (AUTO) 326 K/uL (130-400); RED BLOOD CELL COUNT(AUTO) 2.86 MIL/uL (4.50-6.20); RED CELL DISTRIBUTION WIDTH 17.2 % (11.0-15.5); WHITE BLOOD COUNT (AUTO) 9.1 K/uL (4.8-10.8)
[2021-02-12 04:40] LABS: CREATININE 1.4 mg/dL (0.5-1.5); POTASSIUM 3.7 mmol/L (3.5-5.1)
[2021-02-12] MEDS: ZOSYN 3.375GM +NS 50ML IV SCH ×2 (05:14→16:21)
[2021-02-12] MEDS: LEVOTHYROXINE 50 MCG TABLET PO SCH (06:20)
[2021-02-12 08:00] VITALS: BP 131/74
[2021-02-12] MEDS: SACUBITRIL/VALSARTAN 1 EACH TABLET PO SCH ×2 (08:54→21:14)
[2021-02-12] MEDS: PANTOPRAZOLE 40 MG TAB DR PO SCH ×2 (08:54→21:13)
[2021-02-12] MEDS: FERROUS SULFATE 325 MG TABLET.DR PO SCH ×3 (08:54→21:21)
[2021-02-12] MEDS: CLOPIDOGREL 75MG TAB PO SCH (08:54)
[2021-02-12] MEDS: KCL 20 MEQ ERTAB PO SCH (08:55)
[2021-02-12] MEDS: CARVEDILOL 12.5 MG TABLET PO SCH ×2 (08:55→21:14)
[2021-02-12] MEDS: ISOSORBIDE MONO 30MG SR TAB PO SCH ×2 (08:55→21:14)
[2021-02-12] MEDS: ENOXAPARIN SODIUM 40 MG/0.4 ML SYRINGE SQ SCH (08:56)
[2021-02-12] MEDS: DOCUSATE SODIUM 100 MG CAP PO SCH ×2 (09:00→21:00)
[2021-02-12 12:00] VITALS: BP 132/66
[2021-02-12 16:00] VITALS: BP 136/79
[2021-02-12 20:00] VITALS: BP 134/69
[2021-02-12] MEDS ORDERED: IPRATROPIUM/ALBUTEROL SULFATE 3 ML SOLUTION IH PRN (20:00)
[2021-02-12] MEDS: ATORVASTATIN 40 MG TABLET PO SCH (21:13)
[2021-02-13] VITALS: BP 143/75
[2021-02-13 04:00] VITALS: BP 119/74
[2021-02-13] MEDS: ZOSYN 3.375GM +NS 50ML IV SCH ×2 (05:42→16:00)
[2021-02-13] MEDS: LEVOTHYROXINE 50 MCG TABLET PO SCH (06:17)
[2021-02-13 08:00] VITALS: BP 145/73
[2021-02-13] MEDS: PANTOPRAZOLE 40 MG TAB DR PO SCH (08:28)
[2021-02-13] MEDS: ENOXAPARIN SODIUM 40 MG/0.4 ML SYRINGE SQ SCH (08:28)
[2021-02-13] MEDS: FERROUS SULFATE 325 MG TABLET.DR PO SCH ×2 (08:29→16:08)
[2021-02-13] MEDS: ISOSORBIDE MONO 30MG SR TAB PO SCH (08:29)
[2021-02-13] MEDS: KCL 20 MEQ ERTAB PO SCH (08:30)
[2021-02-13] MEDS: CARVEDILOL 12.5 MG TABLET PO SCH (08:31)
[2021-02-13] MEDS: CLOPIDOGREL 75MG TAB PO SCH (08:31)
[2021-02-13] MEDS: DOCUSATE SODIUM 100 MG CAP PO SCH (09:00)
[2021-02-13] MEDS: SACUBITRIL/VALSARTAN 1 EACH TABLET PO SCH (09:00)
[2021-02-13 11:49] VITALS: BP 125/75
== END 2021-02-13 17:24 | disposition home or self-care (01) | DRG 871 ==
LOC: EDH 12:32 → EDHIP 12:33 → 3BH 02-08 00:07
PROVIDERS: ADMIT Internal Medicine Hematology & Oncology; ATTEND Internal Medicine Hematology & Oncology
PROC: 30233N1 Transfusion of Nonautologous Red Blood Cells into Peripheral Vein, Percutaneous Approach (ICD-10-PCS; principal; 2021-02-07)
DX: A41.81 Sepsis due to Enterococcus (principal); J15.9 Unspecified bacterial pneumonia; I50.42 Chronic combined systolic (congestive) and diastolic (congestive) heart failure; K92.2 Gastrointestinal hemorrhage, unspecified; I13.0 Hypertensive heart and chronic kidney disease with heart failure and stage 1 through stage 4 chronic kidney disease, or unspecified chronic kidney disease; N17.9 Acute kidney failure, unspecified; Z20.822 Contact with and (suspected) exposure to COVID-19; E03.9 Hypothyroidism, unspecified; E78.5 Hyperlipidemia, unspecified; N18.30 Chronic kidney disease, stage 3 unspecified; I25.10 Atherosclerotic heart disease of native coronary artery without angina pectoris; D50.0 Iron deficiency anemia secondary to blood loss (chronic); Z83.3 Family history of diabetes mellitus; Z82.49 Family history of ischemic heart disease and other diseases of the circulatory system; Z79.2 Long term (current) use of antibiotics; Z87.891 Personal history of nicotine dependence; Z95.1 Presence of aortocoronary bypass graft; Z95.810 Presence of automatic (implantable) cardiac defibrillator
CPT/HCPCS: 36415; 71045; 71046; 71250; 80048; 80053; 81001; 83735; 83880; 84100; 84145; 85025; 85027; 86850; 86900; 86901; 86923; 87040; 87071; 87077; 87088; 87186; 87205; 87635; 87804; 94640; 94664; 94667; 94668; G0378; J1650; J1940; J2543; J3370; J3475; J7050; P9016

== ENCOUNTER 2021-03-21 05:46 | Day surgery (SDC) | payer OTHER, MEDICARE ==
[2021-03-19 10:35] LABS: HEMATOCRIT 30.1 % (42-54); LYMPHOCYTES % (AUTO) 16.4 % (21.0-51.0); MEAN CORPUSCULAR HEMOGLOBIN 28.1 pg (27.0-33.0); MEAN CORPUSCULAR HGB CONC 32.6 g/dL (32.0-36.0); MEAN CORPUSCULAR VOLUME 86.2 fL (79-99); MONOCYTES % (AUTO) 10.4 % (3.0-13.0); PLATELET COUNT (AUTO) 226 K/uL (130-400); RED BLOOD CELL COUNT(AUTO) 3.49 MIL/uL (4.50-6.20); RED CELL DISTRIBUTION WIDTH 18.4 % (11.0-15.5); WHITE BLOOD COUNT (AUTO) 8.2 K/uL (4.8-10.8)
[2021-03-19 10:42] LABS: CREATININE 1.3 mg/dL (0.5-1.5)
[2021-03-19 12:10] LABS: INR 1.17 (0.85-1.15); PROTHROMBIN TIME 12.6 SEC (9.6-11.6)
[2021-03-19 12:11] LABS: PARTIAL THROMBOPLASTIN TIME 39.2 SEC (26.3-35.5)
[2021-03-20 12:35] VITALS: BP 125/62
[2021-03-20 13:41] VITALS: BP 125/62
[2021-03-21] VITALS (9 sets, daily range): BP systolic 100–127; BP diastolic 53–67
[~2021-03-21] VITALS: Ht 175.3 cm; Wt 82.3 kg
[~2021-03-21 05:46] MED LIST changes: -ATOR40TA69 PO; +ATOR40TA71 PO; -DOCU-116 PO; -FERR-72 PO; +FERR324T4 PO; -HYDR30CR79 RC; +LEVO50CA4 PO
[2021-03-21] MEDS ORDERED: 0.9%NACL 1000ML 1,000 ML IV SCH (08:00)
[2021-03-21] MEDS ORDERED: CEFAZOLIN SODIUM 1 GM VIAL IVP ONE (08:00)
[2021-03-21] MEDS ORDERED: BUPIVACAINE/PF 0.25% 30ML VIAL IJ ONE (09:30)
[2021-03-21] MEDS ORDERED: MIDAZOLAM HCL 1 MG/ML 2ML VIAL ONE ×3 (09:30→10:41)
[2021-03-21] MEDS ORDERED: MEPERIDINE-PF 25 MG/ML SYG ONE ×3 (09:30→10:41)
[2021-03-21] MEDS ORDERED: CEFAZOLIN SODIUM 1 GM VIAL ONE (09:30)
[2021-03-21] MEDS ORDERED: LIDOCAINE HCL 1% MDV 50ML VIAL ONE (09:31)
[2021-03-21] MEDS ORDERED: ACETAMINOPHEN WITH CODEINE 1 TAB TAB PO PRN (11:30)
[2021-03-21] MEDS ORDERED: TRAM50TA4 PO (11:34)
== END 2021-03-21 15:05 | disposition home or self-care (01) ==
LOC: DAH 05:46
PROVIDERS: ATTEND Internal Medicine Cardiovascular Disease
DX: T82.110A Breakdown (mechanical) of cardiac electrode, initial encounter (principal); I25.10 Atherosclerotic heart disease of native coronary artery without angina pectoris; I25.5 Ischemic cardiomyopathy; I11.0 Hypertensive heart disease with heart failure; E03.9 Hypothyroidism, unspecified; E78.5 Hyperlipidemia, unspecified; Z87.891 Personal history of nicotine dependence; Z86.73 Personal history of transient ischemic attack (TIA), and cerebral infarction without residual deficits; Z95.5 Presence of coronary angioplasty implant and graft; Z79.01 Long term (current) use of anticoagulants; Y83.8 Other surgical procedures as the cause of abnormal reaction of the patient, or of later complication, without mention of misadventure at the time of the procedure
CPT/HCPCS: 33216; 36415; 71045; 80048; 85025; 85610; 85730; C1769; C1895; J0690; J2175 ×3; J2250 ×3; J3490 ×2; J7030; 93005; 99156; 99157

== ENCOUNTER → 2021-09-26 | Outpatient (CLI) | payer OTHER, MEDICARE ==
[~2021-09-26] MED LIST changes: +TRAM50TA4 PO
[2021-09-26 12:51] LABS: CREATININE 1.7 mg/dL (0.5-1.5); POTASSIUM 4.2 mmol/L (3.5-5.1)
== END | disposition home or self-care (01) ==
LOC: LAB 08:21
PROVIDERS: ATTEND Internal Medicine Cardiovascular Disease
DX: I25.5 Ischemic cardiomyopathy (principal)
CPT/HCPCS: 36415; 80048; 83880

== ENCOUNTER → 2022-05-10 | Outpatient (CLI) | payer OTHER, MEDICARE ==
[~2022-05-10] MED LIST changes: +ASPI-1443 PO; +BENZ-226 PO; +DIPH1TAB24 PO; -FURO20TA4 PO; +FURO40TA7 PO; -ISOS60TA77 PO; +METO2.5T2 PO; +NITR0.4T50 SL; +PROM12.513 PO
[2022-05-10 12:47] LABS: CREATININE 2.6 mg/dL (0.5-1.5); MAGNESIUM 2.2 mg/dL (1.80-2.40); POTASSIUM 3.1 mmol/L (3.5-5.1)
== END | disposition home or self-care (01) ==
LOC: LAB 10:38
PROVIDERS: ATTEND Nurse Practitioner Acute Care
DX: I50.22 Chronic systolic (congestive) heart failure (principal); I25.5 Ischemic cardiomyopathy
CPT/HCPCS: 36415; 80048; 83735; 83880

== ENCOUNTER → 2022-07-03 | Outpatient (CLI) | payer OTHER, MEDICARE | END | disposition home or self-care (01) | LOC: RAH 12:02 | PROVIDERS: ATTEND Urology | DX: I51.7 Cardiomegaly (principal); N13.39 Other hydronephrosis; K80.20 Calculus of gallbladder without cholecystitis without obstruction | CPT/HCPCS: 74176 ==

== ENCOUNTER 2022-09-08 21:18 | Emergency (ER) | payer OTHER, MEDICARE ==
[~2022-09-08] VITALS: Ht 175.3 cm; Wt 76.2 kg
[~2022-09-08 21:18] MED LIST changes: -ASPI-1443 PO; -ATOR40TA71 PO; -BENZ-226 PO; -DIPH1TAB24 PO; +EMPA10TA PO; +FAMO40TA7 PO; -FERR324T4 PO; +FINA5TAB41 PO; +FURO20TA4 PO; +LEVO-70 PO; -METO2.5T2 PO; -NITR0.4T50 SL; +Nitroglycerin 0.4MG Sl Tab SL; -PROM12.513 PO; -SUCR1ORA15 PO; +TAMS-1 PO; -TRAM50TA4 PO
[2022-09-08 23:28] LABS: BASOPHILS % (AUTO) 0.9 % (0.0-5.0); EOSINOPHILS % (AUTO) 5.5 % (0.0-8.0); HEMATOCRIT 37.8 % (42-54); LYMPHOCYTES % (AUTO) 15.7 % (21.0-51.0); MEAN CORPUSCULAR HEMOGLOBIN 31.4 pg (27.0-33.0); MEAN CORPUSCULAR HGB CONC 33.1 g/dL (32.0-36.0); MONOCYTES % (AUTO) 9.5 % (3.0-13.0); NEUTROPHILS % (AUTO) 68.1 % (40.0-77.0); PLATELET COUNT (AUTO) 209 K/uL (130-400); RED BLOOD CELL COUNT(AUTO) 3.98 MIL/uL (4.50-6.20); RED CELL DISTRIBUTION WIDTH 13.6 % (11.0-15.5); WHITE BLOOD COUNT (AUTO) 7.1 K/uL (4.8-10.8)
[2022-09-08 23:37] LABS: CREATININE 2.3 mg/dL (0.5-1.5); POTASSIUM 4.2 mmol/L (3.5-5.1)
[2022-09-08 23:37] LABS: APPEARANCE,URINE TURBID (CLEAR); BILIRUBIN,URINE NEGATIVE (NEGATIVE); COLOR,URINE DARK-RED (YELLOW); GLUCOSE, URINE (UA) NEGATIVE (NEGATIVE); KETONES,URINE NEGATIVE (NEGATIVE); LEUKOCYTE ESTERASE ,URINE 25 Leu/uL (NEGATIVE); NITRATE,URINE NEGATIVE (NEGATIVE); OCCULT BLOOD,URINE LARGE (NEGATIVE); PH,URINE 6.5 (5.0-8.0); PROTEIN,URINE 200 mg/dL (NEGATIVE); UROBILINOGEN,URINE 0.2 mg/dL (0.2-1.0)
[2022-09-08 23:42] LABS: ALBUMIN 3.5 g/dL (3.5-5.0); TOTAL PROTEIN, SERUM 8.3 g/dL (6.0-8.3)
[2022-09-08 23:45] LABS: BACTERIA,URINE Few /HPF (None Seen); RBC,URINE TNTC /HPF (0-1); SQUAMOUS EPITHELIAL CELL,UR MOD /HPF (0-2)
[2022-09-09] MEDS ORDERED: FURO20TA4 PO (01:19)
[2022-09-09] MEDS ORDERED: FERR325T22 PO (01:22)
[2022-09-09 01:55] VITALS: BP 100/60; PULSE 75; RESP 16; O2SAT 98
== END 2022-09-09 03:09 | disposition home or self-care (01) ==
LOC: EDH 21:18
DX: N13.9 Obstructive and reflux uropathy, unspecified (principal); R31.9 Hematuria, unspecified; I11.0 Hypertensive heart disease with heart failure; I50.9 Heart failure, unspecified; E78.00 Pure hypercholesterolemia, unspecified; Z79.84 Long term (current) use of oral hypoglycemic drugs; Z79.899 Other long term (current) drug therapy; Z95.810 Presence of automatic (implantable) cardiac defibrillator; Z98.890 Other specified postprocedural states
CPT/HCPCS: 36415; 80053; 81001; 85025

== ENCOUNTER → 2022-12-20 | Outpatient (CLI) | payer OTHER, MEDICARE ==
[~2022-12-20] MED LIST changes: +ALLO100T PO; -CARV12.511 PO; -FAMO40TA7 PO; +FERR325T22 PO; -FURO20TA4 PO; +FURO40TA5 PO; -FURO40TA7 PO; +Folic Acid/Vitamin B Comp W-C PO; +HYDR-3420 PO; +IPRA3AMP24 IH; +ISOS30TA92 PO; -LEVO-70 PO; -LEVO50CA4 PO; +LEVO75TA4 PO; +METO25TA3 PO; -PANT40TA54 PO; -SACU1TAB PO; +SPIR25TA6 PO
[2022-12-20 12:36] LABS: CREATININE 2.4 mg/dL (0.5-1.5); POTASSIUM 4.2 mmol/L (3.5-5.1)
== END | disposition home or self-care (01) ==
LOC: LAB 09:06
PROVIDERS: ATTEND Nurse Practitioner Acute Care
DX: I50.22 Chronic systolic (congestive) heart failure (principal)
CPT/HCPCS: 36415; 80048; 83880

== ENCOUNTER → 2023-01-16 | Outpatient (CLI) | payer OTHER, MEDICARE ==
[~2023-01-16] MED LIST changes: +AMIO200T68 PO; +PANT40TA PO; -SPIR25TA6 PO
[2023-01-16 12:36] LABS: CREATININE 3.4 mg/dL (0.5-1.5); POTASSIUM 3.7 mmol/L (3.5-5.1)
== END | disposition home or self-care (01) ==
LOC: LAB 10:34
PROVIDERS: ATTEND Nurse Practitioner Acute Care
DX: I50.22 Chronic systolic (congestive) heart failure (principal)
CPT/HCPCS: 36415; 80048; 83880